=== PATIENT | female | born 1980 | race African-American/Black ===

== ENCOUNTER 2017-10-27 09:59 | Inpatient (IN) ==
[2017-10-27] MEDS ORDERED: Naloxone Inj 0.4 MG/ML Vial IV.PUSH PRN ×2 (10:58→21:44)
[2017-10-27] MEDS ORDERED: Oxytocin 30 Units/500ml Premix 30 UNITS/500 ML BAG IV.SIG ONE (10:58)
[2017-10-27] MEDS ORDERED: Sod Chloride 0.9% Inj 1,000 ML IV.CONT PRN (10:58)
[2017-10-27] MEDS ORDERED: fentaNYL Citrate Inj 100 MCG/2 ML Ampul IV.PUSH PRN ×2 (10:58)
[2017-10-27] MEDS ORDERED: Sodium Chlor 0.9% Inj 500 ML IV.SIG PRN (10:58)
[2017-10-27] MEDS ORDERED: Citric Acid/Sodium Citrate Liq 30 ML UDC PO SCH (11:00)
--- NOTE | 2017-10-27 11:00 | P.HPOB ---
History of Present Illness Primary Care Physician: Gini Baptiste Chief Complaint: Contractions History of Present Illness: Patient is a 37 year old at 40 weeks and 4 days who presents to OB triage for evaluation of contraction pain. She reports contractions <q10 minutes since 4 a.m. this morning. She denies fluid leakage or vaginal bleeding. She endorses positive movement. Patient is GBS negative. Weeks Gestation:: 40 Para: 0 : 1 Review of Systems All other systems reviewed negative except as stated in HPI PMFSH - History History Provided By: Patient - Medical / Surgical Hx Neg / Unobtainable Medical Problems Denied: Yes Surgical History: No Previous Surgery - Social History I have reviewed the patient's Social History: Yes - Tobacco History Second Hand Smoke Exposure: No Tobacco Use In Past 30 Days: No Smoking Status: Never smoker - Alcohol History How Often Do You Have a Drink Containing Alcohol: Never - Substance Use History Substance History: No History of Abuse - Travel History History of Recent Travel: Yes (recently came from [place]) Medications and Allergies Allergies Allergy/AdvReac Type Severity Reaction Status Date / Time No Known Allergies Allergy Verified 08/24/17 12:15 Home Medications Medication Instructions Recorded Confirmed Type PNV #[id number] 1 tab PO DAILY 08/24/17 08/24/17 History iron 2 mg/kg PO DAILY 08/24/17 08/24/17 History Exam Vital signs: Vital Signs 10/27/17 10:13 10/27/17 10:14 Temperature 97.5 F L Pulse Rate 82 Blood Pressure 139/88 Narrative: GENERAL: Well-nourished, well-developed patient. SKIN: Warm and dry. HEAD: Normocephalic and atraumatic. EYES: No scleral icterus. No injection or drainage. ENT: No nasal drainage noted. Mucous membranes pink. Airway patent. NECK: Supple, trachea midline. No JVD. CARDIOVASCULAR: Regular rate and rhythm without murmurs, gallops, or rubs. RESPIRATORY: Breath sounds equal bilaterally. No accessory muscle use. ABDOMEN/GI: Abdomen soft, non-tender, bowel sounds present, no rebound, no guarding Gravid to 40 weeks size GENITOURINARY: External Genitalia: intact and normal in appearance Dilatation: 5 cm Effacement: 90% Station: -3 Presentation: vertex Membranes: intact Uterine Contractions: q2min FHT's: Category: 1 Baseline: 140 Reactive: + Variability: moderate Decels: none EXTREMITIES: No cyanosis or edema. NEUROLOGICAL: Awake and alert. Motor and sensory grossly within normal limits. Five out of 5 muscle strength in all muscle groups. Normal speech. Results - Labs Group B Strep: Negative Assessment and Plan - Diagnosis (1) 40 weeks gestation of Code(s): Z3A.40 - 40 weeks gestation of Status: Acute - Plan Patient is a 37 year old at 40 weeks and 4 days who presents to OB triage in active labor. IUP, Category 1 tracing. Cervical exam: 5cm/90/-3. Admit to L&D. Routine orders. Anticipate . Discussed with OB hospitalist. Discharge Plan - Discharge Disposition Patient Disposition: 30 Still Patient - Discharge Condition Condition: Stable - Physicians Team ED Provider: Venkat Mojica Primary Care Provider: NOT REQUIRED,
[2017-10-27 12:06] LABS: Baso % (Auto) 0.5 % (0.0-2.0); Eos % (Auto) 0.3 % (0.0-4.0); Hematocrit 36.4 % (35.0-46.0); Hemoglobin 12.1 gm/dL (11.6-15.3); Lymph % (Auto) 20.6 % (9.0-44.0); Mean Corpuscular HGB Conc 33.4 % (32.0-36.0); Mean Corpuscular Hemoglobin 25.6 pg (27.0-34.0); Mean Corpuscular Volume 76.6 fL (80.0-100.0); Mean Platelet Volume 9.7 fL (7.0-11.0); Mono # (Auto) 0.5 th/mm3 (0.0-0.9); Mono % (Auto) 11.1 % (0.0-8.0); Neut # (Auto) 3.2 th/mm3 (1.8-7.7); Neut % (Auto) 67.5 % (16.0-70.0); Platelet Count 154 th/mm3 (150-450); Red Blood Count 4.75 mil/mm3 (4.00-5.30); Red Cell Distribution Width 15.5 % (11.6-17.2); White Blood Count 4.7 th/mm3 (4.0-11.0)
[2017-10-27 12:25] LABS: Bacteria,Urine Rare /hpf; Bilirubin,Urine Negative (Negative); Clarity,Urine Clear (Clear); Color,Urine Yellow (Yellw/Straw); Glucose,Urine (UA) Negative (Negative); Leukocyte Esterase,Urine Negative (Negative); Nitrite,Urine Negative (Negative); Specific Gravity,Urine 1.014 (1.002-1.035); Squamous Epithelial Cell,Urine <1 /hpf (0-5)
[2017-10-27 12:27] LABS: Amphetamine Urine With Conf Neg (Neg); Benzodiazepine Urine With Conf Neg (Neg)
[2017-10-27] MEDS ORDERED: Lidocaine PF 1% Inj 5 ML Vial ONE (12:52)
[2017-10-27] MEDS ORDERED: fentaNYL 2MCG-Bupiv 0.125% Epi 150 ML EPIDURAL ONE (12:52)
[2017-10-27] MEDS ORDERED: Lidocaaine 1.5%/Epinephrine 1:200,000 PF Inj 5 ML Amp ONE (12:52)
--- NOTE | 2017-10-27 14:38 | P.OBLABOR ---
Subjective Interval history: AROM at approximately 14:30. Meconium-stained. Cervical exam: 6 cm/90/-2. Contractions: q2-3 min. FHT's: Category: 1 Baseline: 125 Reactive: + Variability: moderate Decels: none Patient resting comfortably. Epidural controlling contraction pain. Continue routine L&D management. Discussed with OB hospitalist. Objective Vital Signs: Vital Signs - 8 hr 10/27/17 10:13 10/27/17 10:14 10/27/17 12:18 Temperature 97.5 F L Pulse Rate 82 75 Respiratory Rate Blood Pressure 139/88 135/84 10/27/17 13:05 10/27/17 13:10 10/27/17 13:12 Temperature Pulse Rate 78 76 Respiratory Rate 20 Blood Pressure 146/87 H 141/89 H 10/27/17 13:19 10/27/17 13:20 10/27/17 13:25 Temperature Pulse Rate 81 86 Respiratory Rate 20 Blood Pressure 140/84 131/87 124/77 10/27/17 13:45 10/27/17 13:55 10/27/17 14:10 Temperature Pulse Rate 81 80 71 Respiratory Rate 20 Blood Pressure 129/80 127/89 125/88 10/27/17 14:15 10/27/17 14:29 10/27/17 14:30 Temperature Pulse Rate 72 86 Respiratory Rate 20 18 Blood Pressure 130/87 Objective: Pelvic Exam: Cervix: [-] Dilatation: [-] Effacement: [-] Station: [-] Presentation: [-] Membranes: [intact or ruptured] Uterine Contractions: [-] FHT's: Category: [-] Baseline: [-] Reactive: [-] Variability: [-] Decels: [-] Assessment and Plan - Diagnosis (1) 40 weeks gestation of Code(s): Z3A.40 - 40 weeks gestation of Status: Acute - Plan Patient is a 37 year old at 40 weeks and 4 days who presents to OB triage in active labor. IUP, Category 1 tracing. Cervical exam: 5cm/90/-3. Admit to L&D. Routine orders. Anticipate . Discussed with OB hospitalist.
[2017-10-27] MEDS ORDERED: fentaNYL 2MCG-Bupiv 0.125% Epi 150 ML EPIDURAL PRN (14:52)
[2017-10-27] MEDS ORDERED: Oxytocin 30 Units/500ml Premix 30 UNITS/500 ML BAG IV.SIG PRN (15:50)
--- NOTE | 2017-10-27 15:59 | P.OBLABOR ---
Subjective Interval history: IUPC placed at approximately 15:45. Cervical exam: 6-7 cm/90/-1. Contractions: q2-4 min. FHT's: Category: 1 Baseline: 125 Reactive: + Variability: moderate Decels: none Patient resting comfortably. Epidural controlling contraction pain. Continue routine L&D management. Discussed with OB hospitalist. Objective Vital Signs: Vital Signs - 8 hr 10/27/17 10:13 10/27/17 10:14 10/27/17 12:18 Temperature 97.5 F L Pulse Rate 82 75 Respiratory Rate Blood Pressure 139/88 135/84 10/27/17 13:05 10/27/17 13:10 10/27/17 13:12 Temperature Pulse Rate 78 76 Respiratory Rate 20 Blood Pressure 146/87 H 141/89 H 10/27/17 13:19 10/27/17 13:20 10/27/17 13:25 Temperature Pulse Rate 81 86 Respiratory Rate 20 Blood Pressure 140/84 131/87 124/77 10/27/17 13:45 10/27/17 13:55 10/27/17 14:10 Temperature Pulse Rate 81 80 71 Respiratory Rate 20 Blood Pressure 129/80 127/89 125/88 10/27/17 14:15 10/27/17 14:29 10/27/17 14:30 Temperature 97.7 F Pulse Rate 72 86 Respiratory Rate 20 18 Blood Pressure 130/87 10/27/17 14:40 10/27/17 14:45 10/27/17 15:15 Temperature Pulse Rate 79 74 Respiratory Rate 18 Blood Pressure 10/27/17 15:16 Temperature Pulse Rate 72 Respiratory Rate Blood Pressure 116/74 Objective: Pelvic Exam: Cervix: [-] Dilatation: [-] Effacement: [-] Station: [-] Presentation: [-] Membranes: [intact or ruptured] Uterine Contractions: [-] FHT's: Category: [-] Baseline: [-] Reactive: [-] Variability: [-] Decels: [-] Assessment and Plan - Diagnosis (1) 40 weeks gestation of Code(s): Z3A.40 - 40 weeks gestation of Status: Acute - Plan Patient is a 37 year old at 40 weeks and 4 days who presents to OB triage in active labor. IUP, Category 1 tracing. Cervical exam: 5cm/90/-3. Admit to L&D. Routine orders. Anticipate . Discussed with OB hospitalist.
[2017-10-27] MEDS ORDERED: Measles/Mumps/Rubella Vaccine Inj 0.5 ML Vial SQ ONE (16:00)
[2017-10-27] MEDS ORDERED: Diphtheria/Tetanus/Pertussis Vaccine Inj 0.5 ML Syringe IM ONE (16:00)
--- NOTE | 2017-10-27 18:06 | P.OBLABOR ---
Subjective Interval history: Cervical exam: 7-8 cm/90/0. Contractions: q2 min. FHT's: Category: 1 Baseline: 130 Reactive: + Variability: moderate Decels: none Patient resting comfortably. Epidural controlling contraction pain. Continue routine L&D management. Discussed with OB hospitalist. Objective Vital Signs: Vital Signs - 8 hr 10/27/17 10:13 10/27/17 10:14 10/27/17 12:18 Temperature 97.5 F L Pulse Rate 82 75 Respiratory Rate Blood Pressure 139/88 135/84 10/27/17 13:05 10/27/17 13:10 10/27/17 13:12 Temperature Pulse Rate 78 76 Respiratory Rate 20 Blood Pressure 146/87 H 141/89 H 10/27/17 13:19 10/27/17 13:20 10/27/17 13:25 Temperature Pulse Rate 81 86 Respiratory Rate 20 Blood Pressure 140/84 131/87 124/77 10/27/17 13:45 10/27/17 13:55 10/27/17 14:10 Temperature Pulse Rate 81 80 71 Respiratory Rate 20 Blood Pressure 129/80 127/89 125/88 10/27/17 14:15 10/27/17 14:29 10/27/17 14:30 Temperature 97.7 F Pulse Rate 72 86 Respiratory Rate 20 18 Blood Pressure 130/87 10/27/17 14:40 10/27/17 14:45 10/27/17 15:15 Temperature Pulse Rate 79 74 Respiratory Rate 18 Blood Pressure 10/27/17 15:16 10/27/17 16:24 10/27/17 16:28 Temperature 97.9 F Pulse Rate 72 78 Respiratory Rate 18 Blood Pressure 116/74 150/98 H 10/27/17 16:48 10/27/17 17:18 Temperature Pulse Rate 76 80 Respiratory Rate 18 Blood Pressure 136/83 127/82 Objective: Pelvic Exam: Cervix: [-] Dilatation: [-] Effacement: [-] Station: [-] Presentation: [-] Membranes: [intact or ruptured] Uterine Contractions: [-] FHT's: Category: [-] Baseline: [-] Reactive: [-] Variability: [-] Decels: [-] Assessment and Plan - Diagnosis (1) 40 weeks gestation of Code(s): Z3A.40 - 40 weeks gestation of Status: Acute - Plan Patient is a 37 year old at 40 weeks and 4 days who presents to OB triage in active labor. IUP, Category 1 tracing. Cervical exam: 5cm/90/-3. Admit to L&D. Routine orders. Anticipate . Discussed with OB hospitalist.
[2017-10-27] MEDS ORDERED: Lidocaine 1% Inj 50 ML Vial ONE (21:14)
[2017-10-27] MEDS ORDERED: Witch Hazel 50%/Glyderin 12.5% 40 Pad Jar RECTAL PRN (21:44)
[2017-10-27] MEDS ORDERED: Oxytocin 30 Units/500ml Premix 30 UNITS/500 ML BAG IV.CONT PRN (21:44)
[2017-10-27] MEDS ORDERED: Benzocaine 20% Top Spray 60 ML Can TOPICAL PRN (21:44)
[2017-10-27] MEDS ORDERED: Zolpidem Tartrate 5 MG Tablet PO PRN (21:44)
--- NOTE | 2017-10-27 21:51 | P.OBDELI ---
Weeks Gestation: 40 Patient Started Active Labor: Yes Active Labor Start Date: 10/27/17 Medical Induction of Labor: No Artificial Rupture of Membrane: Yes Anesthesia: Epidural Episiotomy: none Vaginal Delivery: Normal Presentation: Vertex Nuchal Cord: None Delayed Cord Clamping (45 sec): Yes Placenta: Spontaneous delivery, Intact, 3 vessel cord Laceration: 2 deg Repair: Chromic running Estimated blood loss (mL): 250 : Female Female A Delivery Date: 10/27/17 Infant Delivery Time: 21:02 Weight: 3265 kg score (1 min): 7 score (5 min): 9 Additional Information: Moderate meconium. Baby vigorous under warmer.
--- NOTE | 2017-10-28 08:36 | P.PNOB ---
Subjective Post day: 1 Interval history: Patient is a 37-year-old delivered at 41 weeks and 4 days. Patient is day 1 after . Patient's pain is well-controlled. Patient reports minimal bleeding. Patient reports eating and drinking without any nausea or vomiting. Patient has passed gas but has not had a bowel movement. Patient denies chest pain and shortness of breath. Patient has been ambulating; she denies lower extremity pain. Patient has decided to bottle and breast-feed. Objective Vital Signs/I&O: Vital Signs 10/27/17 10:13 10/27/17 10:14 10/27/17 12:18 Temperature 97.5 F L Pulse Rate 82 75 Respiratory Rate Blood Pressure 139/88 135/84 10/27/17 13:05 10/27/17 13:10 10/27/17 13:12 Temperature Pulse Rate 78 76 Respiratory Rate 20 Blood Pressure 146/87 H 141/89 H 10/27/17 13:19 10/27/17 13:20 10/27/17 13:25 Temperature Pulse Rate 81 86 Respiratory Rate 20 Blood Pressure 140/84 131/87 124/77 10/27/17 13:45 10/27/17 13:55 10/27/17 14:10 Temperature Pulse Rate 81 80 71 Respiratory Rate 20 Blood Pressure 129/80 127/89 125/88 10/27/17 14:15 10/27/17 14:29 10/27/17 14:30 Temperature 97.7 F Pulse Rate 72 86 Respiratory Rate 20 18 Blood Pressure 130/87 10/27/17 14:40 10/27/17 14:45 10/27/17 15:15 Temperature Pulse Rate 79 74 Respiratory Rate 18 Blood Pressure 10/27/17 15:16 10/27/17 16:24 10/27/17 16:28 Temperature 97.9 F Pulse Rate 72 78 Respiratory Rate 18 Blood Pressure 116/74 150/98 H 10/27/17 16:48 10/27/17 17:18 10/27/17 18:33 Temperature Pulse Rate 76 80 88 Respiratory Rate 18 18 Blood Pressure 136/83 127/82 10/27/17 18:34 10/27/17 18:35 10/27/17 18:38 Temperature 98.0 F Pulse Rate 84 83 Respiratory Rate Blood Pressure 155/95 H 10/27/17 18:40 10/27/17 18:55 10/27/17 19:00 Temperature Pulse Rate 81 81 86 Respiratory Rate Blood Pressure 10/27/17 19:45 10/27/17 19:55 10/27/17 19:57 Temperature Pulse Rate 88 106 H Respiratory Rate 18 Blood Pressure 143/100 H 10/27/17 20:20 10/27/17 20:25 10/27/17 20:37 Temperature Pulse Rate 93 H 95 H 96 H Respiratory Rate 18 Blood Pressure 147/82 H 202/187 H 177/137 H 10/27/17 21:05 10/27/17 21:15 10/27/17 21:31 Temperature 99.1 F Pulse Rate 93 H 91 H Respiratory Rate 20 Blood Pressure 148/90 H 136/79 10/27/17 21:35 10/27/17 21:50 10/27/17 22:05 Temperature Pulse Rate 85 89 Respiratory Rate 18 18 18 Blood Pressure 129/79 124/82 10/27/17 22:16 10/27/17 22:20 10/27/17 22:30 Temperature Pulse Rate 95 H 108 H Respiratory Rate 18 Blood Pressure 113/96 H 118/76 10/27/17 22:35 10/27/17 23:01 10/27/17 23:05 Temperature Pulse Rate 91 H Respiratory Rate 18 18 Blood Pressure 115/71 10/27/17 23:16 10/27/17 23:25 10/27/17 23:30 Temperature Pulse Rate 101 H 107 H Respiratory Rate 18 Blood Pressure 98/71 L 122/81 10/28/17 00:01 10/28/17 00:40 10/28/17 05:38 Temperature 99.8 F H 98.6 F 98.6 F Pulse Rate 106 H 79 86 Respiratory Rate 18 20 18 Blood Pressure 128/67 142/89 H 127/83 Result Diagrams: 10/27/17 11:20 Objective Remarks: GENERAL: Well-nourished, well-developed patient. CARDIOVASCULAR: Regular rate and rhythm without murmurs, gallops, or rubs. RESPIRATORY: Breath sounds equal bilaterally. No accessory muscle use. ABDOMEN/GI: Abdomen soft, non-tender. Fundus: Firm, non-tender at umbilicus. GENITOURINARY: Light to moderate bleeding. EXTREMITIES: No cyanosis or edema, non-tender, without signs of DVT. Medications and IVs: Active Medications Acetaminophen (Tylenol) 650 mg PO Q4H PRN PRN Reason: PAIN SCALE 1 TO 2 Al Hydroxide/Mg Hydroxide (Milk Of Magnesia Liq) 30 ml PO Q12H PRN PRN Reason: Mild Constipation Benzocaine (Americaine 20% Top [place]) 1 spray TOPICAL Q4H PRN PRN Reason: For Perineum Discomfort Ephedrine Sulfate (Ephedrine/Ns Syringe) 10 mg IV.PUSH UNSCH PRN PRN Reason: SEE LABEL COMMENTS Stop: 10/28/17 14:52 Fentanyl/Bupivacaine/Sodium Chlor (Fentanyl 2 Mcg-Bupiv 0.125% Epi) 150 mls @ 12 mls/hr EPIDURAL PRN PRN PRN Reason: for Labor Pain Last Admin: 10/27/17 13:00 Dose: 12 mls/hr Oxytocin (Pitocin 30 Units/Ns 500 Ml Premix) 30 units in 500 mls @ 2 mls/hr IV.SIG TITRATE PRN; Protocol PRN Reason: For induction of labor Last Admin: 10/27/17 17:16 Dose: 2 milliunit/min, 2 mls/hr Oxytocin (Pitocin 30 Units/Ns 500 Ml Premix) 30 units in 500 mls @ 100 mls/hr IV.CONT UNSCH PRN PRN Reason: Heavy bleeding Ibuprofen (Motrin) 800 mg PO Q8H PRN PRN Reason: For Cramping Last Admin: 10/28/17 05:44 Dose: 800 mg Miscellaneous Information (Misc Information) 1 each OTHER UNSCH PRN PRN Reason: SEE LABEL COMMENTS Stop: 10/28/17 14:55 Miscellaneous Information (Misc Information) 1 each OTHER UNSCH PRN PRN Reason: SEE LABEL COMMENTS Stop: 10/28/17 14:55 Naloxone HCl (Narcan Inj) 0.1 mg IV.PUSH Q2M PRN PRN Reason: for opiate reversal Ondansetron HCl (Zofran Inj) 4 mg IV.PUSH Q6H PRN PRN Reason: NAUSEA OR VOMITING Ondansetron HCl (Zofran Odt) 4 mg PO Q6H PRN PRN Reason: NAUSEA OR VOMITING Vit/Calcium/Iron/Folic Ac (Stuartnatal Plus 3) 1 tab PO DAILY [facility] Senna/Docusate Sodium (Jennifer-Colace) 1 tab PO BID [facility] Sennosides (Senokot) 17.2 mg PO Q12H PRN PRN Reason: Moderate Constipation Sodium Chloride (Ns Flush) 2 ml IV.FLUSH BID [facility] Sodium Chloride (Ns Flush) 2 ml IV.FLUSH PRN PRN PRN Reason: FLUSH AFTER USING IV ACCESS Witch Chandrika/Glycerin (Tucks Pads) 1 applicatio RECTAL QID PRN PRN Reason: HEMORRHOIDS Zolpidem Tartrate (Ambien) 5 mg PO HS PRN PRN Reason: SLEEP Assessment and Plan - Diagnosis (1) 40 weeks gestation of Code(s): Z3A.40 - 40 weeks gestation of Status: Acute - Plan Patient is a 37-year-old delivered at 41 weeks and 4 days. Patient is day 1 after . Continue routine care. Motrin and Percocet when necessary for pain. Encourage OOB. Pelvic rest for 6 weeks will need follow-up appointment at that time. Anticipate discharge tomorrow. [facility] OB hospitalist
[2017-10-28] MEDS: Senna/Docusate Sodium 8.6/50 MG Tablet PO SCH ×2 (09:52→21:43)
[2017-10-28] MEDS: Prenatal Vit/Ca/Iron/Folic Acid Tablet PO SCH (09:52)
[2017-10-28] MEDS: Acetaminophen 325 MG Tablet PO PRN ×2 (14:55→21:43)
--- NOTE | 2017-10-29 08:14 | P.PNOB ---
Subjective Post day: 2 Interval history: Patient is a 37-year-old delivered at 41 weeks and 4 days. Patient is day 2 after . Patient's pain is well-controlled. Patient reports minimal bleeding. Patient reports eating and drinking without any nausea or vomiting. Patient has passed gas but has not had a bowel movement. Patient denies chest pain and shortness of breath. Patient has been ambulating; she denies lower extremity pain. Patient has decided to bottle and breast-feed. Patient desires contraception, which she will discuss at her 6 week follow-up visit. Objective Vital Signs/I&O: Vital Signs 10/28/17 20:00 10/29/17 07:58 Temperature 98.1 F 98.3 F Pulse Rate 98 H 88 Respiratory Rate 18 20 Blood Pressure 133/81 113/80 Result Diagrams: 10/27/17 11:20 Objective Remarks: GENERAL: Well-nourished, well-developed patient. CARDIOVASCULAR: Regular rate and rhythm without murmurs, gallops, or rubs. RESPIRATORY: Breath sounds equal bilaterally. No accessory muscle use. ABDOMEN/GI: Abdomen soft, non-tender. Fundus: Firm, non-tender at umbilicus. GENITOURINARY: Light to moderate bleeding. EXTREMITIES: No cyanosis or edema, non-tender, without signs of DVT. Medications and IVs: Active Medications Acetaminophen (Tylenol) 650 mg PO Q4H PRN PRN Reason: PAIN SCALE 1 TO 2 Last Admin: 10/28/17 14:55 Dose: 650 mg Al Hydroxide/Mg Hydroxide (Milk Of Magnesia Liq) 30 ml PO Q12H PRN PRN Reason: Mild Constipation Benzocaine (Americaine 20% Top [place]) 1 spray TOPICAL Q4H PRN PRN Reason: For Perineum Discomfort Last Admin: 10/28/17 14:55 Dose: 1 spray Fentanyl/Bupivacaine/Sodium Chlor (Fentanyl 2 Mcg-Bupiv 0.125% Epi) 150 mls @ 12 mls/hr EPIDURAL PRN PRN PRN Reason: for Labor Pain Last Admin: 10/27/17 13:00 Dose: 12 mls/hr Oxytocin (Pitocin 30 Units/Ns 500 Ml Premix) 30 units in 500 mls @ 2 mls/hr IV.SIG TITRATE PRN; Protocol PRN Reason: For induction of labor Last Admin: 10/27/17 17:16 Dose: 2 milliunit/min, 2 mls/hr Oxytocin (Pitocin 30 Units/Ns 500 Ml Premix) 30 units in 500 mls @ 100 mls/hr IV.CONT UNSCH PRN PRN Reason: Heavy bleeding Ibuprofen (Motrin) 800 mg PO Q8H PRN PRN Reason: For Cramping Last Admin: 10/28/17 21:41 Dose: 800 mg Naloxone HCl (Narcan Inj) 0.1 mg IV.PUSH Q2M PRN PRN Reason: for opiate reversal Ondansetron HCl (Zofran Inj) 4 mg IV.PUSH Q6H PRN PRN Reason: NAUSEA OR VOMITING Ondansetron HCl (Zofran Odt) 4 mg PO Q6H PRN PRN Reason: NAUSEA OR VOMITING Vit/Calcium/Iron/Folic Ac (Stuartnatal Plus 3) 1 tab PO DAILY [facility] Last Admin: 10/28/17 09:52 Dose: Not Given Senna/Docusate Sodium (Jennifer-Colace) 1 tab PO BID [facility] Last Admin: 10/28/17 21:43 Dose: 1 tab Sennosides (Senokot) 17.2 mg PO Q12H PRN PRN Reason: Moderate Constipation Sodium Chloride (Ns Flush) 2 ml IV.FLUSH BID [facility] Last Admin: 10/29/17 05:29 Dose: Not Given Sodium Chloride (Ns Flush) 2 ml IV.FLUSH PRN PRN PRN Reason: FLUSH AFTER USING IV ACCESS Witch Chandrika/Glycerin (Tucks Pads) 1 applicatio RECTAL QID PRN PRN Reason: HEMORRHOIDS Last Admin: 10/28/17 14:55 Dose: 1 applicatio Zolpidem Tartrate (Ambien) 5 mg PO HS PRN PRN Reason: SLEEP Assessment and Plan - Diagnosis (1) Normal vaginal delivery Code(s): O80 - Encounter for full-term uncomplicated delivery Status: Acute - Plan Patient is a 37-year-old delivered at 41 weeks and 4 days. Patient is day 2 after . Continue routine care. Motrin and Percocet when necessary for pain. Encourage OOB. Pelvic rest for 6 weeks will need follow-up appointment at that time. Anticipate discharge today. [facility] OB hospitalist and Dr. Venkat Castillo - Attending Attestation The exam, history, and the medical decision-making described in the above note were completed with the assistance of the resident physician. I reviewed and agree with the findings presented. I attest that I had a [id number] encounter with the patient on the same day, and personally performed and documented my assessment and findings in the medical record. Patient seen this morning, doing well on PPD #2. Lochia is mild/moderate. Pain well controlled. Has follow up at our clinic planned. Discussed control options.
[2017-10-29] MEDS: Senna/Docusate Sodium 8.6/50 MG Tablet PO SCH (09:34)
[2017-10-29] MEDS: Prenatal Vit/Ca/Iron/Folic Acid Tablet PO SCH (09:34)
[2017-10-29] MEDS ORDERED: Ibuprofen 400 MG Tablet PO PRN ×2 (09:41→09:45)
== END 2017-10-29 16:37 | disposition home or self-care (01) ==
LOC: HOBED 09:59 → H2E 10:47 → H1EA 10-28 00:35
PROVIDERS: ADMIT Obstetrics & Gynecology Maternal & Fetal Medicine; ATTEND Obstetrics & Gynecology Maternal & Fetal Medicine